=== PATIENT | female | born 1965 | race Asian ===

== ENCOUNTER → 2019-11-20 | Day surgery (SDC) | payer MEDICARE, MEDICAID ==
[~2019-11-20] MED LIST: AMARYL4 MG PO; ASPIR 8181 M1 PO; ATIVAN0.5 M1 PO; BENTYL 10 MG CA10 M1 PO; CARVEDILOL12.5 MG PO; CATAPRES0.1 MG PO; CIPRO250 M2 PO; COMBIVENT RESPIM4 GM INH; CRESTOR20 MG PO; CYMBALTA30 MG PO; FLEXERIL PO; FUROSEMIDE 40 M40 MG PO; HEARTBURN RELIE20 MG PO; HYDRALAZINE 5050 MG PO; HYDRALAZINE HC100 MG PO; HYDROXYZINE HCL25 M2 PO; MAGNESIUM400 MG PO; MYFORTIC360 MG PO; NEURONTIN600 MG PO; NORCO 5-325 TA1 EAC1 PO; PREDNISOLONE 5 M5 M1 PO; PROGRAF0.5 MG PO; REQUIP 1 MG TABL1 M1 PO; SODIUM BICARBO650 M3 PO
--- NOTE | ~2019-11-20 | OP ---
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 OPERATION: Ligation and resection of left upper extremity arteriovenous fistula. SURGEON: Jersey Navarrete DO OSD CLERK: THEODORE Conley ANESTHESIA: LMA. ESTIMATED BLOOD LOSS: 50 mL. FLUIDS: 200 crystalloid. URINE OUTPUT: None. SPECIMENS: None. COMPLICATIONS: None. FINDINGS: She had a very large aneurysmal degeneration of her left brachiocephalic fistula. This was over a segment, about 18 cm. This was resected in its entirety and fistula was ligated. She had good multiphasic radial and ulnar artery Doppler signals. CLINICAL HISTORY: The patient is a 53-year-old woman with end-stage renal disease who is status post renal transplant. She has an aneurysmal left upper extremity fistula and has not been used for dialysis in several years. It is painful and discomforting for her. She desires to have it resected. DESCRIPTION OF PROCEDURE: After informed consent was obtained, the patient was taken to the operating room and placed on the OR bed in the supine position. She was administered general anesthesia [place] [address] OPERATIVE REPORT Name: SHAHZADCHIARA Christopher Room: [facility].#: [id number] Admission: 11/20/19 Attend Phys: Jersey Navarrete DO Discharge: Date of : 69 Report #: [id number] extremity was prepped and draped in usual sterile fashion. Full timeout was performed identifying correct patient and procedure. Next, an elliptical incision was made on the skin overlying the aneurysmal segment of the fistula in the left upper arm. Dissection was carried down through skin and subcutaneous tissue, both sharp and electrocautery. The aneurysmal fistula was circumferentially mobilized along its course back to the arteriovenous anastomosis and then up to the proximal left upper arm. I occluded the fistula near the arterial anastomosis, transected it, ligated the stump with running 6-0 Prolene suture. Prior to the ligation, she was noted to have good radial and ulnar artery Doppler signals with occlusion of the fistula. I then resected the aneurysmal segment of the fistula back to more normal vein in the upper arm. This was divided and ligated with 2-0 silk suture ligature on the distal stump. Once hemostasis was ensured, the wound was irrigated with antibiotic solution. It was then closed in layers with 3-0 Vicryl and 4-0 Monocryl in the skin and Dermabond was applied. All counts reported as correct x 2. She tolerated the procedure well and transferred to recovery in stable condition. By: [id number] Navarrete DO /nt
[2019-11-20 08:41] LABS: HEMATOCRIT 34.9 % (37.0-47.0); HEMOGLOBIN 11.6 gm/dL (12.0-15.0); MCH 28.6 pg (26.0-34.0); MCHC 33.3 g/dL (28.0-37.0); MCV 85.8 fL (80.0-100.0); MPV 8.2 fl. (7.2-11.1); RBC 4.07 mil/uL (4.20-5.00); RDW-CV 15.4 % (10.5-14.5); WBC 6.4 thou/uL (4.0-11.0)
[2019-11-20 08:53] LABS: CALCIUM 7.3 mg/dL (8.5-10.1); CREATININE 2.2 mg/dL (0.6-1.3); POTASSIUM 3.6 mmol/L (3.5-5.1)
[2019-11-20 08:58] LABS: ALBUMIN 2.8 g/dL (3.4-5.0); TOTAL BILIRUBIN 0.2 mg/dL (<0.1-1.0); TOTAL PROTEIN 6.4 g/dL (6.4-8.2)
--- NOTE | 2019-11-20 13:31 | EKG ---
[place] [address] ELECTROCARDIOGRAM REPORT Name: CHIARA PIKE Room: [facility]#: [id number] Admission: 11/20/19 Attend Phys: Jersey Navarrete DO Discharge: Date of : 69 Report #: [id number] THIS REPORT FOR: //name// [facility] Test Date: 2019-11-20 Test Time: 08:28:36 Pat Name: CHIARA PIKE Department: Room: Gender: F Medical Records Receptionist: : [id number] Requested By: Jodie Navarrete Order Number: [id number] Patrick BHANDARI: Jose Eduardo Villar Measurements Intervals [place] Rate: 70 P: 5 WA: 160 QRS: 16 QRSD: 72 T: -5 QT: 490 QTc: 529 Interpretive Statements Sinus arrhythmia Borderline T abnormalities, inferolateral leads Prolonged QT interval No previous ECG available for comparison Electronically Signed On 11-20-2019 13:31:00 MARINE SERVICE OPERATOR by Jose Eduardo Villar [email or web address] <ELECTRONICALLY SIGNED> By: Jose Eduardo Villar MD, [facility] 11/20/19 1331 0828 0828 Jose Eduardo Villar MD, FACC /EPI
== END | disposition home or self-care (01) ==
LOC: M.SUR 07:08
PROVIDERS: Family Medicine
DX: T82.898A Other specified complication of vascular prosthetic devices, implants and grafts, initial encounter (principal); N18.6 End stage renal disease; Z98.890 Other specified postprocedural states; Z79.82 Long term (current) use of aspirin; Z88.0 Allergy status to penicillin; Z88.8 Allergy status to other drugs, medicaments and biological substances; Z79.899 Other long term (current) drug therapy; Y83.8 Other surgical procedures as the cause of abnormal reaction of the patient, or of later complication, without mention of misadventure at the time of the procedure